=== PATIENT | male | born 1975 | race African-American/Black ===

== ENCOUNTER 2018-02-16 12:33 | Inpatient (IN) | payer BC, OTHER ==
[2018-02-16 15:18] VITALS: BMI 20.2
--- NOTE | 2018-02-16 16:45 | HP ---
CIWA Score - CIWA Score Nausea/Vomitin-No Nausea/No Vomiting Muscle Tremors: None Anxiety: 1-Mildly Anxious Agitation: 0-Normal Activity Paroxysmal Sweats: No Perspiration Orientation: 0-Oriented Tacttile Disturbances: 0-None Auditory Disturbances: 0-None Visual Disturbances: 0-None Headache: 0-None Present CIWA-Ar Total Score: 1 Admission ROS S - HPI Chief Complaint: patient here requesting detox from etoh use , reports 20 cans beer/day , currently fatigued , denies w/d symptoms or seizure , + tremors, starts drinking early in the morning to evening time , + blackouts , + falls, latest 2 mo ago , w/ abrasions to the left elbow and the left knee . + crack cocaine x 2 mo + pcp use + cocaine use cannabis use - 3-4 x/day utox + THC , + BAr , florentin 0.00 pmhx/pshx : right wrist ggl cyst allergies : NKDA Allergies/Adverse Reactions: Allergies Allergy/AdvReac Type Severity Reaction Status Date / Time No Known Allergies Allergy Verified 02/16/18 16:43 - Ebola screening Have you traveled outside of the country in the last 21 days: No (N) Have you had contact with anyone from an Ebola affected area: No Have you been sick,other than usual withdrawal symptoms: No Do you have a fever: No - Review of Systems Constitutional: No Symptoms Reported EENT: reports: No Symptoms Reported Respiratory: reports: No Symptoms reported Cardiac: reports: No Symptoms Reported GI: reports: No Symptoms Reported : reports: No Symptoms Reported Integumentary: reports: No Symptoms Reported Neuro: reports: No Symptoms reported Endocrine: reports: No Symptoms Reported Hematology: reports: No Symptoms Reported Patient History - Smoking Cessation Smoking history: Smoker current status UNK Aproximately how many cigarettes per day: 40 Cigars Per Day: 1 'Breaking Loose' booklet given: 02/16/18 Family Disease History - Family Disease History Family History: Denies Admission Physical Exam [facility] - Vital Signs Vital Signs: Vital Signs - 24 hr 02/16/18 15:16 Temperature 97.2 F L Pulse Rate 81 Respiratory 18 Rate Blood Pressure 113/71 - Physical General Appearance: Yes: No Apparent Distress, Appropriately Dressed HEENTM: Yes: EOMI, Normocephalic Respiratory: Yes: Chest Non-Tender, Lungs Clear, Normal Breath Sounds Neck: Yes: No masses,lesions,Nodules, Trachea in good position Breast: Yes: Breast Exam Deferred Cardiology: Yes: Regular Rhythm, Regular Rate Abdominal: Yes: Normal Bowel Sounds, Non Tender Back: Yes: Within Normal Limits Extremities: Yes: Normal Capillary Refill, Normal Range of Motion Neurological: Yes: Within Normal Limits, Other (reports fatigue) Integumentary: Yes: Normal Color BHS Breath Alcohol Content Breath Alcohol Content: 0 Urine Drug Screen - Results Drug Screen Negative: No Urine Drug Screen Results: THC-Marijuana, BAR-Barbiturates
[2018-02-16] MEDS ORDERED: MAG HYDROX/AL HYDROX/SIMETH 30 ML UNIT-DOSE CUP PO PRN (16:48)
[2018-02-16] MEDS ORDERED: hydrOXYzine PAMOATE 25 MG CAPSULE (FP) PO PRN (16:48)
[2018-02-16] MEDS ORDERED: MAGNESIUM HYDROX 2400MG/30ML ORAL SUSPENSION 30 ML CUP PO PRN (16:48)
[2018-02-16] MEDS ORDERED: ACETAMINOPHEN 325 MG TABLET (FP) PO PRN (16:48)
[2018-02-16] MEDS ORDERED: MAGNESIUM CITRATE 300 ML BOTTLE PO PRN (16:48)
[2018-02-16] MEDS ORDERED: IBUPROFEN 400 MG TABLET (FP) PO PRN (16:48)
[2018-02-16] MEDS ORDERED: MELATONIN 5 MG TABLETS PO PRN (22:00)
[2018-02-16] MEDS: diazePAM 5 MG TABLET PO SCH (22:16)
[2018-02-16] MEDS: THIAMINE HCL 100 MG TABLET (FP) PO SCH (22:16)
[2018-02-17 02:05] LABS: URINE APPEARANCE TURBID; URINE BILIRUBIN NEGATIVE (<2.0 mg/dL); URINE COLOR YELLOW; URINE GLUCOSE (UA) NEGATIVE (NEGATIVE); URINE KETONE NEGATIVE (NEGATIVE); URINE LEUK ESTERASE NEGATIVE (NEGATIVE); URINE NITRITE NEGATIVE (NEGATIVE); URINE PROTEIN NEGATIVE (NEGATIVE)
[2018-02-17] MEDS: diazePAM 5 MG TABLET PO SCH ×3 (06:39→22:20)
[2018-02-17] MEDS: NICOTINE 7 MG/24 HOURS TOPICAL PATCH TD SCH (10:11)
[2018-02-17] MEDS: PRENATAL VITAMINS W/ FOLIC ACID TABLET (FP) PO SCH (10:11)
--- NOTE | 2018-02-17 10:32 | PN ---
S CIWA - CIWA Score Nausea/Vomitin-Mild Nausea/No Vomiting Muscle Tremors: 4-Moderate,w/Arms Extend Anxiety: 4-Mod. Anxious/Guarded Agitation: 4-Moderately Restless Paroxysmal Sweats: 1-Minimal Palms Moist Orientation: 1-Uncertain about Date Tacttile Disturbances: 1-Very Mild Itch/Numbness Auditory Disturbances: 1-Very Mild Visual Disturbances: 0-None Headache: 0-None Present CIWA-Ar Total Score: 17 BHS Progress Note (SOAP) Subjective: sweat tremor restlessness irritable trouble sleep st night Objective: 02/17/18 10:30 Vital Signs Temperature 97.2 F L 02/17/18 09:19 Pulse Rate 77 02/17/18 09:19 Respiratory Rate 16 02/17/18 09:19 Blood Pressure 135/88 02/17/18 09:19 O2 Sat by Pulse Oximetry (%) Laboratory Last Values Urine Color Yellow 02/16/18 21:27 Urine Appearance Turbid 02/16/18 21:27 Urine pH 5.0 (5.0-8.0) 02/16/18 21:27 Ur Specific [place] 1.029 (1.001-1.035) 02/16/18 21:27 Urine Protein Negative (NEGATIVE) 02/16/18 21:27 Urine Glucose (UA) Negative (NEGATIVE) 02/16/18 21:27 Urine Ketones Negative (NEGATIVE) 02/16/18 21:27 Urine Blood Negative (NEGATIVE) 02/16/18 21:27 Urine Nitrite Negative (NEGATIVE) 02/16/18 21:27 Urine Bilirubin Negative (<2.0 mg/dL) 02/16/18 21:27 Urine Urobilinogen 2.0 mg/dL (0.2-1.0) 02/16/18 21:27 Ur Leukocyte Esterase Negative (NEGATIVE) 02/16/18 21:27 lab noted Assessment: 02/17/18 10:32 withdrawal sx Plan: continue detox
[2018-02-17 10:37] LABS: HEMATOCRIT 37.6 % (35.4-49); HEMOGLOBIN 12.4 GM/dL (11.7-16.9); MCH 31.1 pg (25.7-33.7); MEAN CELL VOLUME 94.2 fl (80-96); MEAN PLT VOLUME 7.2 fl (7.5-11.1); PLATELET COUNT 228 K/MM3 (134-434); RBC 3.99 M/mm3 (4.00-5.60); RDW 13.1 % (11.9-15.9); WHITE BLOOD COUNT 3.4 K/mm3 (4.0-10.0)
[2018-02-17 10:50] LABS: CHLORIDE 105 mmol/L (98-107); POTASSIUM 3.8 mmol/L (3.5-5.1); SODIUM 142 mmol/L (136-145)
[2018-02-17 10:56] LABS: ALBUMIN 3.2 g/dl (3.4-5.0); ALK PHOS 65 U/L (45-117); ANION GAP 10 MMOL/L (8-16); BILIRUBIN,TOTAL 0.5 mg/dL (0.2-1.0); BLOOD UREA NITROGEN 16 mg/dL (7-18); CALCIUM 8.7 mg/dL (8.5-10.1); CO2 27 mmol/L (21-32); CREATININE 0.8 mg/dL (0.55-1.3); GLUCOSE,RANDOM 92 mg/dL (74-106); SGOT/AST 48 U/L (15-37); SGPT/ALT 64 U/L (13-61); TOT PROT 5.9 g/dl (6.4-8.2)
[2018-02-17] MEDS: THIAMINE HCL 100 MG TABLET (FP) PO SCH (22:20)
--- NOTE | 2018-02-17 22:28 | EKG ---
Test Reason : Blood Pressure : / mmHG Vent. Rate : 045 BPM Atrial Rate : 045 BPM P-R Int : 150 ms QRS Dur : 086 ms QT Int : 442 ms P-R-T Axes : 078 026 038 degrees QTc Int : 382 ms SINUS BRADYCARDIA OTHERWISE NORMAL ECG NO PREVIOUS ECGS AVAILABLE Confirmed by AUTUMN NELSON MD ([id number]) on 02/17/2018 10:28:43 PM Referred By: Confirmed By:AUTUMN NELSON MD
[2018-02-18] MEDS: diazePAM 5 MG TABLET PO SCH ×2 (10:45→22:29)
[2018-02-18] MEDS: PRENATAL VITAMINS W/ FOLIC ACID TABLET (FP) PO SCH (10:45)
[2018-02-18] MEDS: NICOTINE 7 MG/24 HOURS TOPICAL PATCH TD SCH (10:46)
--- NOTE | 2018-02-18 12:29 | PN ---
S CIWA - CIWA Score Nausea/Vomitin-No Nausea/No Vomiting Muscle Tremors: 3 Anxiety: 2 Agitation: 2 Paroxysmal Sweats: 1-Minimal Palms Moist Orientation: 0-Oriented Tacttile Disturbances: 2-Mild Itch/Numbness/Burn Auditory Disturbances: 0-None Visual Disturbances: 0-None Headache: 2-Mild CIWA-Ar Total Score: 12 BHS Progress Note (SOAP) Subjective: sweat tremor restlessness irritable anxiety Objective: 02/18/18 12:26 Vital Signs Temperature 99.0 F 02/18/18 09:12 Pulse Rate 55 L 02/18/18 09:12 Respiratory Rate 18 02/18/18 09:12 Blood Pressure 137/78 02/18/18 09:12 O2 Sat by Pulse Oximetry (%) Laboratory Last Values WBC 3.4 K/mm3 (4.0-10.0) L 02/17/18 07:25 RBC 3.99 M/mm3 (4.00-5.60) L 02/17/18 07:25 Hgb 12.4 GM/dL (11.7-16.9) 02/17/18 07:25 Hct 37.6 % (35.4-49) 02/17/18 07:25 MCV 94.2 fl (80-96) 02/17/18 07:25 MCH 31.1 pg (25.7-33.7) 02/17/18 07:25 MCHC 33.0 g/dl (32.0-35.9) 02/17/18 07:25 RDW 13.1 % (11.9-15.9) 02/17/18 07:25 Plt Count 228 K/MM3 (134-434) 02/17/18 07:25 MPV 7.2 fl (7.5-11.1) L 02/17/18 07:25 Sodium 142 mmol/L (136-145) 02/17/18 07:25 Potassium 3.8 mmol/L (3.5-5.1) 02/17/18 07:25 Chloride 105 mmol/L (98-107) 02/17/18 07:25 Carbon Dioxide 27 mmol/L (21-32) 02/17/18 07:25 Anion Gap 10 MMOL/L (8-16) 02/17/18 07:25 BUN 16 mg/dL (7-18) 02/17/18 07:25 Creatinine 0.8 mg/dL (0.55-1.3) 02/17/18 07:25 Creat Clearance w eGFR > 60 (>60) 02/17/18 07:25 Random Glucose 92 mg/dL (74-106) 02/17/18 07:25 Calcium 8.7 mg/dL (8.5-10.1) 02/17/18 07:25 Total Bilirubin 0.5 mg/dL (0.2-1.0) 02/17/18 07:25 AST 48 U/L (15-37) H 02/17/18 07:25 ALT 64 U/L (13-61) H 02/17/18 07:25 Alkaline Phosphatase 65 U/L (45-117) 02/17/18 07:25 Total Protein 5.9 g/dl (6.4-8.2) L 02/17/18 07:25 Albumin 3.2 g/dl (3.4-5.0) L 02/17/18 07:25 Urine Color Yellow 02/16/18 21:27 Urine Appearance Turbid 02/16/18 21:27 Urine pH 5.0 (5.0-8.0) 02/16/18 21:27 Ur Specific [place] 1.029 (1.001-1.035) 02/16/18 21:27 Urine Protein Negative (NEGATIVE) 02/16/18 21:27 Urine Glucose (UA) Negative (NEGATIVE) 02/16/18 21:27 Urine Ketones Negative (NEGATIVE) 02/16/18 21: Urine Blood Negative (NEGATIVE) 02/16/18 21:27 Urine Nitrite Negative (NEGATIVE) 02/16/18 21:27 Urine Bilirubin Negative (<2.0 mg/dL) 02/16/18 21:27 Urine Urobilinogen 2.0 mg/dL (0.2-1.0) 02/16/18 21:27 Ur Leukocyte Esterase Negative (NEGATIVE) 02/16/18 21:27 RPR Titer Nonreactive (NONREACTIVE) 02/17/18 07:25 lab noted Assessment: 02/18/18 12:27 withdrawal sx Plan: continue detox
[2018-02-18] MEDS: THIAMINE HCL 100 MG TABLET (FP) PO SCH (23:10)
--- NOTE | 2018-02-19 09:55 | PN ---
BHS Progress Note (SOAP) Subjective: feeling better no tremor less sweat social with peers in day room Objective: 02/19/18 09:54 Vital Signs Temperature 98.1 F 02/19/18 09:45 Pulse Rate 57 L 02/19/18 09:45 Respiratory Rate 18 02/19/18 09:45 Blood Pressure 130/74 02/19/18 09:45 O2 Sat by Pulse Oximetry (%) Laboratory Last Values WBC 3.4 K/mm3 (4.0-10.0) L 02/17/18 07:25 RBC 3.99 M/mm3 (4.00-5.60) L 02/17/18 07:25 Hgb 12.4 GM/dL (11.7-16.9) 02/17/18 07:25 Hct 37.6 % (35.4-49) 02/17/18 07:25 MCV 94.2 fl (80-96) 02/17/18 07:25 MCH 31.1 pg (25.7-33.7) 02/17/18 07:25 MCHC 33.0 g/dl (32.0-35.9) 02/17/18 07:25 RDW 13.1 % (11.9-15.9) 02/17/18 07:25 Plt Count 228 K/MM3 (134-434) 02/17/18 07:25 MPV 7.2 fl (7.5-11.1) L 02/17/18 07:25 Sodium 142 mmol/L (136-145) 02/17/18 07:25 Potassium 3.8 mmol/L (3.5-5.1) 02/17/18 07:25 Chloride 105 mmol/L (98-107) 02/17/18 07:25 Carbon Dioxide 27 mmol/L (21-32) 02/17/18 07:25 Anion Gap 10 MMOL/L (8-16) 02/17/18 07:25 BUN 16 mg/dL (7-18) 02/17/18 07:25 Creatinine 0.8 mg/dL (0.55-1.3) 02/17/18 07:25 Creat Clearance w eGFR > 60 (>60) 02/17/18 07:25 Random Glucose 92 mg/dL (74-106) 02/17/18 07:25 Calcium 8.7 mg/dL (8.5-10.1) 02/17/18 07:25 Total Bilirubin 0.5 mg/dL (0.2-1.0) 02/17/18 07:25 AST 48 U/L (15-37) H 02/17/18 07:25 ALT 64 U/L (13-61) H 02/17/18 07:25 Alkaline Phosphatase 65 U/L (45-117) 02/17/18 07:25 Total Protein 5.9 g/dl (6.4-8.2) L 02/17/18 07:25 Albumin 3.2 g/dl (3.4-5.0) L 02/17/18 07:25 Urine Color Yellow 02/16/18 21:27 Urine Appearance Turbid 02/16/18 21: Urine pH 5.0 (5.0-8.0) 02/16/18 21:27 Ur Specific [place] 1.029 (1.001-1.035) 02/16/18 21:27 Urine Protein Negative (NEGATIVE) 02/16/18 21:27 Urine Glucose (UA) Negative (NEGATIVE) 02/16/18 21: Urine Ketones Negative (NEGATIVE) 02/16/18 21: Urine Blood Negative (NEGATIVE) 02/16/18: Urine Nitrite Negative (NEGATIVE) 02/16/18: Urine Bilirubin Negative (<2.0 mg/dL) 02/16/18 21: Urine Urobilinogen 2.0 mg/dL (0.2-1.0) 02/16/18 21:27 Ur Leukocyte Esterase Negative (NEGATIVE) 02/16/18 21:27 RPR Titer Nonreactive (NONREACTIVE) 02/17/18 07:25 lab noted Assessment: 02/19/18 09:55 mild withdrawal sx Plan: medically supervised detox
[2018-02-19] MEDS: PRENATAL VITAMINS W/ FOLIC ACID TABLET (FP) PO SCH (10:54)
[2018-02-19] MEDS: NICOTINE 7 MG/24 HOURS TOPICAL PATCH TD SCH (10:54)
[2018-02-19] MEDS: diazePAM 5 MG TABLET PO SCH ×2 (10:54→22:27)
[2018-02-19] MEDS: THIAMINE HCL 100 MG TABLET (FP) PO SCH (22:27)
--- NOTE | 2018-02-20 08:33 | PN ---
BHS Progress Note (SOAP) Subjective: I'm better Objective: 02/20/18 08:31 Vital Signs Temperature 97.5 F L 02/20/18 06:00 Pulse Rate 57 L 02/20/18 06:00 Respiratory Rate 16 02/20/18 06:00 Blood Pressure 115/65 02/20/18 06:00 O2 Sat by Pulse Oximetry (%) Laboratory Tests 02/16/18 02/17/18 02/17/18 21:27 07:25 07:25 WBC 3.4 L RBC 3.99 L Hgb 12.4 Hct 37.6 MCV 94.2 MCH 31.1 MCHC 33.0 RDW 13.1 Plt Count 228 MPV 7.2 L Sodium 142 Potassium 3.8 Chloride 105 Carbon Dioxide 27 Anion Gap 10 BUN 16 Creatinine 0.8 Creat Clearance w eGFR > 60 Random Glucose 92 Calcium 8.7 Total Bilirubin 0.5 AST 48 H ALT 64 H Alkaline Phosphatase 65 Total Protein 5.9 L Albumin 3.2 L Urine Color Yellow Urine Appearance Turbid Urine pH 5.0 Ur Specific [place] 1.029 Urine Protein Negative Urine Glucose (UA) Negative Urine Ketones Negative Urine Blood Negative Urine Nitrite Negative Urine Bilirubin Negative Urine Urobilinogen 2.0 Ur Leukocyte Esterase Negative RPR Titer 02/17/18 07:25 WBC RBC Hgb Hct MCV MCH MCHC RDW Plt Count MPV Sodium Potassium Chloride Carbon Dioxide Anion Gap BUN Creatinine Creat Clearance w eGFR Random Glucose Calcium Total Bilirubin AST ALT Alkaline Phosphatase Total Protein Albumin Urine Color Urine Appearance Urine pH Ur Specific [place] Urine Protein Urine Glucose (UA) Urine Ketones Urine Blood Urine Nitrite Urine Bilirubin Urine Urobilinogen Ur Leukocyte Esterase RPR Titer Nonreactive pt aox3 in nad ambulating Assessment: 02/20/18 08:32 withdrawasx's improved -detox completed Plan: d/c today rehab increase fluids
--- NOTE | 2018-02-20 08:36 | DS ---
[facility] Detox Discharge Summary Admission Date: 02/16/18 Discharge Date: 02/20/18 - History Present History: Alcohol Dependence, Cannabis Dependence, Pcp Dependence - Physical Exam Results Vital Signs: Vital Signs Temperature 97.5 F L 02/20/18 06:00 Pulse Rate 57 L 02/20/18 06:00 Respiratory Rate 16 02/20/18 06:00 Blood Pressure 115/65 02/20/18 06:00 O2 Sat by Pulse Oximetry (%) - Treatment Hospital Course: Detox Protocol Followed, Detoxed Safely, Responded well, Discharged Condition Good - Medication Discharge Medications: Ambulatory Orders NK [No Known Home Medication] 02/16/18 - Diagnosis (1) Chronic alcoholism Current Visit: Yes Status: Chronic (2) Marijuana abuse Current Visit: Yes Status: Acute (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
--- NOTE | 2018-02-20 08:37 | DS ---
[facility] Detox Discharge Summary Admission Date: 02/16/18 - History Present History: Alcohol Dependence, Cannabis Dependence, Pcp Dependence - Physical Exam Results Vital Signs: Vital Signs Temperature 97.5 F L 02/20/18 06:00 Pulse Rate 57 L 02/20/18 06:00 Respiratory Rate 16 02/20/18 06:00 Blood Pressure 115/65 02/20/18 06:00 O2 Sat by Pulse Oximetry (%) - Treatment Hospital Course: Detox Protocol Followed, Detoxed Safely, Responded well, Discharged Condition Good - Medication Discharge Medications: Ambulatory Orders NK [No Known Home Medication] 02/16/18 - Diagnosis (1) Chronic alcoholism Current Visit: Yes Status: Chronic (2) Marijuana abuse Current Visit: Yes Status: Acute (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
[2018-02-20 09:21] VITALS: BP 137/82; PULSE 56; TEMP 97.3
[2018-02-20] MEDS: PRENATAL VITAMINS W/ FOLIC ACID TABLET (FP) PO SCH (09:37)
[2018-02-20] MEDS ORDERED: diazePAM 5 MG TABLET PO SCH (10:00)
== END 2018-02-20 09:45 | disposition home or self-care (01) | DRG 897 ==
LOC: YASAS 12:33 → Y6N 18:41
PROC: HZ2ZZZZ Detoxification Services for Substance Abuse Treatment (ICD-10-PCS; principal; 2018-02-16)
DX: F10.20 Alcohol dependence, uncomplicated (principal); F14.20 Cocaine dependence, uncomplicated; F16.20 Hallucinogen dependence, uncomplicated; F12.20 Cannabis dependence, uncomplicated; M67.431 Ganglion, right wrist
CPT/HCPCS: 36415; 80053; 81003; 85027; 86593; 93005; 93010